=== PATIENT | male | born 1990 | race Hispanic/Latino ===

== ENCOUNTER 2023-02-11 16:10 | Emergency (ER) | payer SELFPAY ==
[~2023-02-11] VITALS: Ht 185.4 cm; Wt 102.2 kg
[2023-02-11 16:18] VITALS: BP 117/82
[2023-02-11 16:31] VITALS: BP 126/80
[2023-02-11 17:00] VITALS: BP 96/63
[2023-02-11] MEDS ORDERED: CEPHALEXIN500 MG PO (17:13)
[2023-02-11 17:31] VITALS: BP 123/75
[2023-02-11 17:34] VITALS: BP 123/75
[2023-02-11] MEDS ORDERED: TRAMADOL HYDROC50 M1 PO (17:41)
== END 2023-02-11 18:00 | disposition home or self-care (01) | DRG 563 ==
LOC: ED 16:10
DX: S92.402A Displaced unspecified fracture of left great toe, initial encounter for closed fracture (principal); W34.00XA Accidental discharge from unspecified firearms or gun, initial encounter; Z23 Encounter for immunization